=== PATIENT | male | born 1930 | race Caucasian/White ===

== ENCOUNTER 2017-06-16 10:17 | Inpatient (IN) | payer MEDICARE, MEDICAID ==
[~2017-06-16] VITALS: Ht 188 cm; Wt 77.3 kg
[2017-06-16] MEDS ORDERED: ALBU18HF2 INH (10:43)
[2017-06-16] MEDS ORDERED: HYDR-565 PO (10:43)
[2017-06-16] MEDS ORDERED: LOSA25TA96 PO (10:43)
[2017-06-16] MEDS ORDERED: TIOT18CA3 (10:43)
[2017-06-16] MEDS ORDERED: guaiFENesin/codeine phos 10ml UD oral syrup PO ONE (10:55)
[2017-06-16] MEDS ORDERED: benzonatate 100mg capsule PO ONE (10:55)
[2017-06-16] MEDS ORDERED: normal saline 1000ML IV soln IVB ONE (10:55)
[2017-06-16] MEDS ORDERED: methylPREDNISolone sod succ 125mg/2ml vial IV ONE (10:55)
[2017-06-16 11:12] LABS: BASOPHILS % (AUTO) 0.3 % (0-1); EOSINOPHILS % (AUTO) 0 % (0-6); HEMATOCRIT 43.4 % (42.0-52.0); HEMOGLOBIN 14.7 g/dl (14.0-17.9); LYMPHOCYTES # (AUTO) 1.1 X10'3 (1.1-4.8); LYMPHOCYTES % (AUTO) 24.9 % (21-51); MEAN CORPUSCULAR HEMOGLOBIN 30.1 PG (27.0-31.0); MEAN CORPUSCULAR HGB CONC 33.8 % (33.0-36.5); MEAN CORPUSCULAR VOLUME 88.9 FL (78-98); MEAN PLATELET VOLUME 8.5 FL (7.4-10.4); MONOCYTES # (AUTO) 0.3 X10'3 (0-0.9); NEUTROPHILS # (AUTO) 2.9 X10'3 (1.8-7.7); NEUTROPHILS % (AUTO) 66.8 % (42-75); PLATELET COUNT 193 X10'3 (140-440); RED BLOOD COUNT 4.88 X10'6 (4.70-6.10); RED CELL DISTRIBUTION WIDTH 15.1 % (11.5-14.5); WHITE BLOOD COUNT 4.3 X10'3 (4.5-11.0)
[2017-06-16 11:20] LABS: ALANINE AMINOTRANSFERASE 15 U/L (12-78); ALBUMIN 3.4 G/DL (3.4-5.0); ALBUMIN/GLOBULIN RATIO 0.9 (1.1-1.5); ALKALINE PHOSPHATASE 73 IU/L (46-116); ANION GAP 9 (8-16); ASPARTATE AMINO TRANSFERASE 17 U/L (10-37); BILIRUBIN,TOTAL 0.7 MG/DL (0.1-1.0); BLOOD UREA NITROGEN 8 MG/DL (7-18); BUN/CREATININE RATIO 8.4 (5.4-32.0); CHLORIDE 101 MMOL/L (99-107); CREATININE 0.95 MG/DL (0.60-1.10); GLUCOSE 118 MG/DL (70-104); POTASSIUM 3.7 MMOL/L (3.5-5.1); SODIUM 140 MMOL/L (135-145); TOTAL CARBON DIOXIDE 30.3 MMOL/L (24-32); TOTAL PROTEIN 7.2 G/DL (6.4-8.2); eGFR 75 ML/MIN
[2017-06-16 11:26] LABS: INR 0.9 INR; PROTHROMBIN TIME 9.8 SECONDS (9.0-12.0)
[2017-06-16] MEDS ORDERED: levoFLOXACIN 500mg tablet PO ONE (12:05)
[2017-06-16] MEDS ORDERED: BENZ-16 PO (12:27)
[2017-06-16] MEDS ORDERED: LEVO500T2 PO (12:27)
[2017-06-16] MEDS ORDERED: ipratropium/albuterol 3ml nebule NEB ONE (12:35)
[2017-06-16] MEDS ORDERED: guaiFENesin/codeine phos 10ml UD oral syrup PO PRN (13:40)
[2017-06-16] MEDS ORDERED: benzocaine/menthol oral lozeng 1 EACH BOX MM PRN (13:40)
[2017-06-16] MEDS ORDERED: benzonatate 100mg capsule PO PRN (13:45)
[2017-06-16] MEDS ORDERED: HYDROcodone/acetaminophen 5mg/325mg tablet PO PRN (13:50)
[2017-06-16] MEDS ORDERED: enoxaparin 40mg/0.4ml syringe SUBCUT SCH (13:50)
[2017-06-16] MEDS ORDERED: ondansetron/PF 4mg/2ml inj IV PRN (13:50)
[2017-06-16] MEDS ORDERED: magnesium hydroxide 30ml (MOM) UD suspension PO PRN (13:50)
[2017-06-16] MEDS ORDERED: acetaminophen 325mg tablet PO PRN (13:50)
[2017-06-16] MEDS ORDERED: mag hydrox/Alum hydrox/simeth 30ml oral suspension PO PRN (13:50)
[2017-06-16] MEDS ORDERED: HYDROcodone/acetaminophen 10/325mg tab PO SCH (14:00)
[2017-06-16] MEDS: enoxaparin 40mg/0.4ml syringe SUBCUT SCH (14:17)
[2017-06-16] MEDS: azithromycin 250mg tablet PO SCH (14:18)
[2017-06-16 15:21] VITALS: BP 192/97
[2017-06-16] MEDS: methylPREDNISolone sod succ 125mg/2ml vial IV SCH ×2 (17:09→21:17)
[2017-06-16] MEDS: metoprolol tartrate 50mg tablet PO SCH ×2 (17:09→21:17)
[2017-06-16 18:06] VITALS: BP 192/97
[2017-06-16 18:17] VITALS: BP 190/92
[2017-06-16 20:00] VITALS: BP 190/92
[2017-06-16] MEDS ORDERED: temazepam 15mg capsule PO PRN (21:00)
[2017-06-16] MEDS: pantoprazole 40 MG vial IV SCH (21:16)
[2017-06-16] MEDS: HYDROcodone/acetaminophen 10/325mg tab PO PRN (21:18)
[2017-06-16] MEDS: HYDROchlorothiazide 25mg tablet PO SCH (21:30)
[2017-06-17] VITALS: BP 196/95
[2017-06-17] MEDS: HYDROcodone/acetaminophen 10/325mg tab PO PRN (00:03)
[2017-06-17 03:15] VITALS: BP 195/88
[2017-06-17] MEDS ORDERED: hyDRALAzine 10mg tablet PO SCH (04:15)
[2017-06-17 05:27] LABS: BASOPHILS % (AUTO) 0.3 % (0-1); EOSINOPHILS % (AUTO) 0.7 % (0-6); HEMATOCRIT 42.5 % (42.0-52.0); HEMOGLOBIN 14.6 g/dl (14.0-17.9); LYMPHOCYTES % (AUTO) 19.4 % (21-51); MEAN CORPUSCULAR HEMOGLOBIN 30.3 PG (27.0-31.0); MEAN CORPUSCULAR HGB CONC 34.4 % (33.0-36.5); MEAN CORPUSCULAR VOLUME 88.2 FL (78-98); MEAN PLATELET VOLUME 8.4 FL (7.4-10.4); MONOCYTES # (AUTO) 0.2 X10'3 (0-0.9); MONOCYTES % (AUTO) 3.7 % (2-12); NEUTROPHILS # (AUTO) 3.9 X10'3 (1.8-7.7); NEUTROPHILS % (AUTO) 75.9 % (42-75); PLATELET COUNT 211 X10'3 (140-440); RED BLOOD COUNT 4.82 X10'6 (4.70-6.10); RED CELL DISTRIBUTION WIDTH 14.9 % (11.5-14.5); WHITE BLOOD COUNT 5.1 X10'3 (4.5-11.0)
[2017-06-17 05:42] LABS: INR 1.1 INR; PROTHROMBIN TIME 10.9 SECONDS (9.0-12.0)
[2017-06-17 05:45] LABS: ALBUMIN 3.1 G/DL (3.4-5.0); ANION GAP 10 (8-16); BLOOD UREA NITROGEN 12 MG/DL (7-18); BUN/CREATININE RATIO 13.6 (5.4-32.0); CALCIUM 8.6 MG/DL (8.5-10.1); CHLORIDE 99 MMOL/L (99-107); CREATININE 0.88 MG/DL (0.60-1.10); GLUCOSE 134 MG/DL (70-104); MAGNESIUM 1.6 MG/DL (1.5-2.4); POTASSIUM 3.9 MMOL/L (3.5-5.1); SODIUM 138 MMOL/L (135-145); TOTAL CARBON DIOXIDE 28.9 MMOL/L (24-32); eGFR 82 ML/MIN
[2017-06-17 07:00] VITALS: BP 214/106
[2017-06-17] MEDS: pantoprazole 40 MG vial IV SCH (07:17)
[2017-06-17] MEDS: methylPREDNISolone sod succ 125mg/2ml vial IV SCH ×4 (07:17→22:27)
[2017-06-17] MEDS: enoxaparin 40mg/0.4ml syringe SUBCUT SCH (07:18)
[2017-06-17] MEDS: metoprolol tartrate 50mg tablet PO SCH ×2 (07:18→22:27)
[2017-06-17] MEDS: HYDROchlorothiazide 25mg tablet PO SCH (07:18)
[2017-06-17] MEDS: azithromycin 250mg tablet PO SCH (07:18)
[2017-06-17] MEDS: levoFLOXACIN-Levaquin 750MG/D5 150 ML IV SCH (07:19)
[2017-06-17] MEDS: hyDRALAzine 10mg tablet PO SCH ×2 (07:23→17:21)
[2017-06-17 08:00] VITALS: BP 204/106
[2017-06-17] MEDS ORDERED: hydrALAZINE 20mg/ml inj. IV PRN (08:45)
[2017-06-17] MEDS ORDERED: albuterol 2.5 MG/3 ML nebule ONE (09:01)
[2017-06-17] MEDS: albuterol 2.5 MG/3 ML nebule NEB PRN ×2 (09:03→19:13)
[2017-06-17] MEDS ORDERED: furosemide 40mg/4ml inj IV ONE (09:25)
[2017-06-17] MEDS ORDERED: furosemide 20 MG/2 ML vial IV ONE (09:25)
[2017-06-17] MEDS: nicotine 21mg patch - 24 hr TD SCH (10:24)
[2017-06-17] MEDS: normal saline 1000ml 1,000 ML IV SCH (10:28)
[2017-06-17 11:00] VITALS: BP 148/71
[2017-06-17] MEDS ORDERED: iohexol 350MG/ML 100ml bottle IV ONE (11:53)
[2017-06-17] MEDS ORDERED: bisacodyl 10mg suppository rectal RC PRN (16:20)
[2017-06-17] MEDS: morphine 4 MG/ML inj SYRINge IV PRN (16:48)
[2017-06-17] MEDS: dextrose 5%-normal saline 1,000 ML IV SCH (18:55)
[2017-06-17 19:00] VITALS: BP 164/87
[2017-06-17] MEDS: furosemide 40mg/4ml inj IV SCH (22:27)
[2017-06-17] MEDS: pantoprazole 40mg Tablet.DR PO SCH (22:27)
[2017-06-18] VITALS: BP 160/95
[2017-06-18] MEDS: hyDRALAzine 10mg tablet PO SCH ×3 (01:23→16:53)
[2017-06-18] MEDS: HYDROcodone/acetaminophen 10/325mg tab PO PRN (01:32)
[2017-06-18] MEDS: normal saline 1000ml 1,000 ML IV SCH (05:15)
[2017-06-18 06:10] LABS: BASOPHILS % (AUTO) 0.1 % (0-1); EOSINOPHILS % (AUTO) 0 % (0-6); HEMATOCRIT 49.2 % (42.0-52.0); HEMOGLOBIN 16.9 g/dl (14.0-17.9); LYMPHOCYTES % (AUTO) 6.7 % (21-51); MEAN CORPUSCULAR HEMOGLOBIN 30.3 PG (27.0-31.0); MEAN CORPUSCULAR HGB CONC 34.3 % (33.0-36.5); MEAN CORPUSCULAR VOLUME 88.3 FL (78-98); MEAN PLATELET VOLUME 8.9 FL (7.4-10.4); MONOCYTES # (AUTO) 0.8 X10'3 (0-0.9); MONOCYTES % (AUTO) 5.4 % (2-12); NEUTROPHILS % (AUTO) 87.8 % (42-75); PLATELET COUNT 323 X10'3 (140-440); RED BLOOD COUNT 5.57 X10'6 (4.70-6.10); RED CELL DISTRIBUTION WIDTH 14.6 % (11.5-14.5); WHITE BLOOD COUNT 14.8 X10'3 (4.5-11.0)
[2017-06-18 06:15] LABS: INR 1.1 INR; PROTHROMBIN TIME 11.3 SECONDS (9.0-12.0)
[2017-06-18 06:17] LABS: ALBUMIN 3.7 G/DL (3.4-5.0); ANION GAP 14 (8-16); BLOOD UREA NITROGEN 28 MG/DL (7-18); BUN/CREATININE RATIO 19.7 (5.4-32.0); CALCIUM 8.7 MG/DL (8.5-10.1); CHLORIDE 94 MMOL/L (99-107); CREATININE 1.42 MG/DL (0.60-1.10); GLUCOSE 149 MG/DL (70-104); MAGNESIUM 1.8 MG/DL (1.5-2.4); POTASSIUM 3.8 MMOL/L (3.5-5.1); SODIUM 139 MMOL/L (135-145); TOTAL CARBON DIOXIDE 30.9 MMOL/L (24-32); eGFR 47 ML/MIN
[2017-06-18 07:00] VITALS: BP 158/97
[2017-06-18] MEDS ORDERED: oseltamivir phos 75mg capsule PO SCH (08:00)
[2017-06-18] MEDS: dextrose 5%-normal saline 1,000 ML IV SCH ×2 (08:15→13:19)
[2017-06-18] MEDS: albuterol 2.5 MG/3 ML nebule NEB PRN (08:32)
[2017-06-18] MEDS: morphine 4 MG/ML inj SYRINge IV PRN ×2 (08:36→13:04)
[2017-06-18] MEDS: metoprolol tartrate 50mg tablet PO SCH ×2 (08:36→20:33)
[2017-06-18] MEDS: HYDROchlorothiazide 25mg tablet PO SCH (08:37)
[2017-06-18] MEDS: furosemide 40mg/4ml inj IV SCH (08:37)
[2017-06-18] MEDS: pantoprazole 40mg Tablet.DR PO SCH ×2 (08:37→20:34)
[2017-06-18] MEDS: methylPREDNISolone sod succ 125mg/2ml vial IV SCH ×4 (08:37→22:47)
[2017-06-18] MEDS: enoxaparin 40mg/0.4ml syringe SUBCUT SCH (08:38)
[2017-06-18] MEDS: levoFLOXACIN-Levaquin 750MG/D5 150 ML IV SCH (08:38)
[2017-06-18] MEDS: nicotine 21mg patch - 24 hr TD SCH (08:54)
[2017-06-18] MEDS: sodium chloride 0.45% 1,000 ML IV SCH ×2 (10:25→13:19)
[2017-06-18 11:00] VITALS: BP 158/87
[2017-06-18] MEDS: lactobacillus rhamnosus 10,000 MMU CELLS/CAPSULE PO SCH (16:53)
[2017-06-18 19:30] VITALS: BP 162/71
[2017-06-18] MEDS: oseltamivir 30mg capsule PO SCH (20:33)
[2017-06-18 22:00] VITALS: BP 163/112
[2017-06-19] VITALS: BP 141/73
[2017-06-19] MEDS: hyDRALAzine 10mg tablet PO SCH ×4 (00:35→23:20)
[2017-06-19] MEDS: sodium chloride 0.45% 1,000 ML IV SCH (03:40)
[2017-06-19] MEDS: albuterol 2.5 MG/3 ML nebule NEB PRN ×2 (03:48→08:09)
[2017-06-19] MEDS: methylPREDNISolone sod succ 125mg/2ml vial IV SCH ×3 (04:33→20:23)
[2017-06-19 05:44] LABS: BASOPHILS % (AUTO) 0.1 % (0-1); EOSINOPHILS % (AUTO) 0 % (0-6); HEMATOCRIT 46.1 % (42.0-52.0); HEMOGLOBIN 15.6 g/dl (14.0-17.9); LYMPHOCYTES # (AUTO) 0.8 X10'3 (1.1-4.8); LYMPHOCYTES % (AUTO) 4.3 % (21-51); MEAN CORPUSCULAR HGB CONC 33.9 % (33.0-36.5); MEAN CORPUSCULAR VOLUME 88.5 FL (78-98); MEAN PLATELET VOLUME 9.1 FL (7.4-10.4); MONOCYTES % (AUTO) 5.4 % (2-12); NEUTROPHILS # (AUTO) 16.6 X10'3 (1.8-7.7); NEUTROPHILS % (AUTO) 90.2 % (42-75); PLATELET COUNT 315 X10'3 (140-440); RED BLOOD COUNT 5.21 X10'6 (4.70-6.10); WHITE BLOOD COUNT 18.4 X10'3 (4.5-11.0)
[2017-06-19 05:53] LABS: INR 1.1 INR; PROTHROMBIN TIME 11.7 SECONDS (9.0-12.0)
[2017-06-19 06:24] LABS: ALBUMIN 3.3 G/DL (3.4-5.0); ANION GAP 14 (8-16); BLOOD UREA NITROGEN 44 MG/DL (7-18); BUN/CREATININE RATIO 26.2 (5.4-32.0); CALCIUM 7.9 MG/DL (8.5-10.1); CHLORIDE 94 MMOL/L (99-107); CREATININE 1.68 MG/DL (0.60-1.10); GLUCOSE 135 MG/DL (70-104); MAGNESIUM 1.8 MG/DL (1.5-2.4); SODIUM 137 MMOL/L (135-145); TOTAL CARBON DIOXIDE 28.9 MMOL/L (24-32); eGFR 39 ML/MIN
[2017-06-19 06:44] LABS: POTASSIUM 2.8 MMOL/L (3.5-5.1)
[2017-06-19 07:00] VITALS: BP 138/67
[2017-06-19] MEDS: oseltamivir 30mg capsule PO SCH ×2 (08:19→21:13)
[2017-06-19] MEDS: HYDROchlorothiazide 25mg tablet PO SCH (08:19)
[2017-06-19] MEDS: metoprolol tartrate 50mg tablet PO SCH ×2 (08:19→20:23)
[2017-06-19] MEDS: pantoprazole 40mg Tablet.DR PO SCH ×2 (08:19→20:23)
[2017-06-19] MEDS: lactobacillus rhamnosus 10,000 MMU CELLS/CAPSULE PO SCH ×2 (08:19→18:03)
[2017-06-19] MEDS: enoxaparin 40mg/0.4ml syringe SUBCUT SCH (08:21)
[2017-06-19] MEDS: nicotine 21mg patch - 24 hr TD SCH (08:22)
[2017-06-19] MEDS ORDERED: magnesium 4gm in 100ml NS 100 ML IV PRN (09:30)
[2017-06-19] MEDS ORDERED: potassium Cl 40MEQ/NS 500ml 500 ML IV PRN (09:30)
[2017-06-19] MEDS ORDERED: magnesium Cl slow-release 64mg tablet PO PRN (09:30)
[2017-06-19] MEDS ORDERED: magnesium 2GM in 50ml NS 50 ML IV PRN (09:30)
[2017-06-19] MEDS ORDERED: potassium Cl 20 mEq SR tablet PO PRN ×2 (09:30)
[2017-06-19 11:00] VITALS: BP 135/76
[2017-06-19] MEDS: potassium Cl 40MEQ/NS 500ml 500 ML IV PRN ×2 (12:08→18:08)
[2017-06-19] MEDS: clindamycin phosphate inj 300 MG in dextrose 5%-water 50ml 48 ML IV SCH ×2 (16:26→20:23)
[2017-06-19 18:00] VITALS: BP 143/83
[2017-06-20] VITALS: BP 134/69
[2017-06-20] MEDS: sodium chloride 0.45% 1,000 ML IV SCH (02:07)
[2017-06-20] MEDS: clindamycin phosphate inj 300 MG in dextrose 5%-water 50ml 48 ML IV SCH ×2 (02:08→08:10)
[2017-06-20] MEDS: methylPREDNISolone sod succ 125mg/2ml vial IV SCH ×2 (02:08→08:11)
[2017-06-20 05:58] LABS: BASOPHILS % (AUTO) 0 % (0-1); EOSINOPHILS # (AUTO) 0.2 X10'3 (0-0.9); EOSINOPHILS % (AUTO) 1.3 % (0-6); HEMATOCRIT 42.2 % (42.0-52.0); HEMOGLOBIN 14.3 g/dl (14.0-17.9); LYMPHOCYTES # (AUTO) 0.7 X10'3 (1.1-4.8); MEAN CORPUSCULAR HEMOGLOBIN 30.3 PG (27.0-31.0); MEAN CORPUSCULAR HGB CONC 33.9 % (33.0-36.5); MEAN CORPUSCULAR VOLUME 89.3 FL (78-98); MEAN PLATELET VOLUME 8.8 FL (7.4-10.4); MONOCYTES # (AUTO) 0.6 X10'3 (0-0.9); MONOCYTES % (AUTO) 4.7 % (2-12); NEUTROPHILS # (AUTO) 11.8 X10'3 (1.8-7.7); PLATELET COUNT 251 X10'3 (140-440); RED BLOOD COUNT 4.72 X10'6 (4.70-6.10); RED CELL DISTRIBUTION WIDTH 14.4 % (11.5-14.5); WHITE BLOOD COUNT 13.2 X10'3 (4.5-11.0)
[2017-06-20 06:15] LABS: INR 1.1 INR; PROTHROMBIN TIME 11.7 SECONDS (9.0-12.0)
[2017-06-20 06:16] LABS: ALBUMIN 2.7 G/DL (3.4-5.0); ANION GAP 7 (8-16); BLOOD UREA NITROGEN 38 MG/DL (7-18); BUN/CREATININE RATIO 32.2 (5.4-32.0); CALCIUM 7.7 MG/DL (8.5-10.1); CHLORIDE 101 MMOL/L (99-107); CREATININE 1.18 MG/DL (0.60-1.10); GLUCOSE 136 MG/DL (70-104); MAGNESIUM 2.2 MG/DL (1.5-2.4); POTASSIUM 3.5 MMOL/L (3.5-5.1); SODIUM 139 MMOL/L (135-145); TOTAL CARBON DIOXIDE 31.3 MMOL/L (24-32); eGFR 58 ML/MIN
[2017-06-20 07:14] VITALS: BP 154/76
[2017-06-20] MEDS ORDERED: levoFLOXACIN-Levaquin 750MG/D5 150 ML IV SCH (08:00)
[2017-06-20] MEDS: oseltamivir 30mg capsule PO SCH (08:11)
[2017-06-20] MEDS: pantoprazole 40mg Tablet.DR PO SCH (08:11)
[2017-06-20] MEDS: metoprolol tartrate 50mg tablet PO SCH (08:11)
[2017-06-20] MEDS: HYDROchlorothiazide 25mg tablet PO SCH (08:11)
[2017-06-20] MEDS: hyDRALAzine 10mg tablet PO SCH ×2 (08:11→16:01)
[2017-06-20] MEDS: nicotine 21mg patch - 24 hr TD SCH (08:12)
[2017-06-20] MEDS: lactobacillus rhamnosus 10,000 MMU CELLS/CAPSULE PO SCH (08:13)
[2017-06-20] MEDS: enoxaparin 40mg/0.4ml syringe SUBCUT SCH (08:25)
[2017-06-20 11:00] VITALS: BP 155/80
[2017-06-20] MEDS ORDERED: levoFLOXACIN 250mg tablet PO SCH (11:00)
[2017-06-20] MEDS ORDERED: PRED20TA PO (13:07)
[2017-06-20] MEDS ORDERED: CLE150C PO (13:07)
[2017-06-20] MEDS ORDERED: LEVO250T58 PO (13:07)
[2017-06-20] MEDS ORDERED: OSEL30CA PO (13:07)
[2017-06-20] MEDS ORDERED: clindamycin 150mg capsule PO SCH (16:00)
[2017-06-21] MEDS ORDERED: predniSONE 20 mg tablet PO SCH (08:00)
== END 2017-06-20 16:38 | disposition home health service (06) | DRG 191 ==
LOC: ER 10:17 → ED HOLD 12:56 → MED 3N 15:10
PROVIDERS: ADMIT Family Medicine; ATTEND Family Medicine
PROC: BW211ZZ Computerized Tomography (CT Scan) of Abdomen and Pelvis using Low Osmolar Contrast (ICD-10-PCS; principal; 2017-06-17)
PROC: B32T1ZZ Computerized Tomography (CT Scan) of Left Pulmonary Artery using Low Osmolar Contrast (ICD-10-PCS; 2017-06-17)
PROC: B3201ZZ Computerized Tomography (CT Scan) of Thoracic Aorta using Low Osmolar Contrast (ICD-10-PCS; 2017-06-17)
PROC: B32S1ZZ Computerized Tomography (CT Scan) of Right Pulmonary Artery using Low Osmolar Contrast (ICD-10-PCS; 2017-06-17)
DX: J44.1 Chronic obstructive pulmonary disease with (acute) exacerbation (principal); N17.9 Acute kidney failure, unspecified; R06.03 Acute respiratory distress; J11.1 Influenza due to unidentified influenza virus with other respiratory manifestations; F41.9 Anxiety disorder, unspecified; I10 Essential (primary) hypertension; R09.02 Hypoxemia; R74.0 Nonspecific elevation of levels of transaminase and lactic acid dehydrogenase [LDH]; Z60.2 Problems related to living alone; F17.200 Nicotine dependence, unspecified, uncomplicated; Z79.899 Other long term (current) drug therapy
CPT/HCPCS: 36415; 71045; 71275; 74177; 80048; 80053; 83605; 83735; 83880; 84145; 84484; 85025; 85610; 87040; 87070; 87502; 87503; 93005; 93308; 94640; 94760; 96361; 96374; 97110; 97162; 97530; 99285; A6212; A6213; A6258; C9113; J0360; J1650; J1940; J1956; J2270; J2930; J3480; J3490; J7030; J7042; J7060; Q9967